=== PATIENT | female | born 1955 | race African-American/Black ===

== ENCOUNTER 2017-01-03 19:27 | Emergency (ER) | payer OTHER ==
[2017-01-03 19:58] VITALS: BP 182/81; PULSE 77; TEMP 98.1; BMI 32.8
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
[2017-01-03] MEDS ORDERED: KETOROLAC TROMETHAMINE 60 MG/2 ML VIAL ONE (21:36)
[2017-01-03] MEDS ORDERED: KETOROLAC TROMETHAMINE 60 MG/2 ML VIAL IM ONE (21:52)
== END 2017-01-03 21:20 | disposition home or self-care (01) ==
LOC: JERFT 19:27 → SUPCPDRO 19:27 → JERFT 21:20
PROC: 3E0233Z Introduction of Anti-inflammatory into Muscle, Percutaneous Approach (ICD-10-PCS; principal; 2017-01-03)
DX: M54.89 Other dorsalgia (principal); M25.512 Pain in left shoulder; V43.62XA Car passenger injured in collision with other type car in traffic accident, initial encounter; Y92.410 Unspecified street and highway as the place of occurrence of the external cause; Y93.89 Activity, other specified; I10 Essential (primary) hypertension; E11.9 Type 2 diabetes mellitus without complications
CPT/HCPCS: 99281-25

== ENCOUNTER 2017-06-04 22:03 | Emergency (ER) | payer OTHER ==
[2017-06-04 22:11] VITALS: BP 151/81; PULSE 98; TEMP 98.7
[2017-06-04] MEDS ORDERED: SULFAMETHOXAZOLE/TRIMETHOPRIM 800MG/160MG D.S. TABLET PO ONE (22:45)
[2017-06-04] MEDS ORDERED: SULFAMETHOXAZOLE/TRIMETHOPRIM 800MG/160MG D.S. TABLET ONE (22:50)
--- NOTE | 2017-06-04 23:04 | PDOC ---
History of Present Illness - General Chief Complaint: Injury Stated Complaint: SPLINTER IN FOOT Time Seen by Provider: 06/04/17 22:20 - History of Present Illness Initial Comments: 06/04/17 23:04 CHIEF COMPLAINT: R foot pain HISTORY OF PRESENT ILLNESS: 61 yo F with hx of NIDDM and HTN presents to fast track with pain to bottom of R foot. Patient reports she got a splinter stuck in her foot 5 days ago and her "removed it but didn't sterilize anything ", and now she is feeling increased pain and swelling to her R foot. Patient denies any fever, chills, nausea, vomiting, diarrhea. PAST MEDICAL HISTORY: Denies past medical history FAMILY HISTORY: Denies SOCIAL HISTORY:Denies tobacco, alcohol, illicit drug use. SURGICAL HISTORY: Denies ALLERGIES: codeine REVIEW OF SYSTEMS General/Constitutional: Denies fever or chills. Denies weakness. HEENT: Denies change in vision. Denies ear pain or discharge. Denies sore throat. Cardiovascular: Denies chest pain or shortness of breath. Respiratory: Denies cough, wheezing, or hemoptysis. Gastrointestinal: Denies nausea, vomiting, diarrhea. Genitourinary: Denies dysuria, frequency, or change in urination. Musculoskeletal: Denies joint or muscle swelling or pain. Denies neck or back pain. Skin: "I got a splinter in my foot 5 days ago and now it's swollen and painful. " Denies rash or easy bruising. Neurologic: Denies headache, vertigo, loss of consciousness, or loss of sensation. PHYSICAL EXAM General Appearance: Well-appearing, appropriately dressed. No apparent distress. HEENT: EOMI, PERRLA, normal ENT inspection, normal voice, TMs normal, pharynx normal. No conjunctival pallor. No photophobia, scleral icterus. Neck: Supple. Trachea midline. No tenderness, rigidity, carotid bruit, stridor , lymphadenopathy, or thyromegaly. Respiratory/Chest: Lungs CTAB. Cardiovascular: RRR. S1, S2. Musculoskeletal/Extremities: Normal inspection. FROM of all extremities, normal capillary refill. Pelvis Stable. No CVA tenderness. No tenderness to extremities, pedal edema, swelling, erythema or deformity. Integumentary: 1 cm x 1 cm minimally fluctuant abscess to lateral aspect of R foot with small foreign body visible. Appropriate color, dry, warm. No cyanosis , erythema, jaundice or rash Neurologic: pharmacy operations coordinator II-XII intact. Fully oriented, alert. Appropriate mood/affect. Motor strength 5/5. No appreciable EOM palsy, facial droop or sensory deficit. Past History - Past Medical History Allergies/Adverse Reactions: Allergies Allergy/AdvReac Type Severity Reaction Status Date / Time codeine [Codeine] Allergy Verified 06/04/17 22:08 Home Medications: Ambulatory Orders Glimepiride [Amaryl -] 1 mg PO DAILY 06/04/17 Losartan Potassium 50 mg PO ASDIR 06/04/17 Sitagliptin Phosphate [Januvia] 50 mg PO DAILY 06/04/17 Sulfamethoxazole/Trimethoprim [Bactrim Ds -] 1 tab PO BID #14 tablet 06/04/17 COPD: No Diabetes: Yes HTN: Yes - Suicide/Smoking/Psychosocial Hx Smoking Status: Yes Smoking History: Former smoker Have you smoked in the past 12 months: Yes Number of Cigarettes Smoked Daily: 5 If you are a former smoker, when did you quit?: 01/2017 Information on smoking cessation initiated: No Hx Alcohol Use: No Drug/Substance Use Hx: No Substance Use Type: None *Physical Exam - Vital Signs Last Vital Signs Temp Pulse Resp BP Pulse Ox 98.7 F 98 H 18 151/81 100 06/04/17 22:08 06/04/17 22:08 06/04/17 22:08 06/04/17 22:08 06/04/17 22:08 Medical Decision Making - Medical Decision Making 06/04/17 23:07 61 yo F with hx of NIDDM and HTN presents to fast track with pain to bottom of R foot. I&D of abscess performed (see proc note), wound culture sent Splinter removed. PAtient is UTD with tetanus. Bactrim first dose given in FT. Advised patient to cotton picker operator rx tonight and continue meds beginning tomorrow morning. Advised patient to take medication as prescribed and of signs and symptoms for return to ED. Patient verbalized understanding and agrees to plan. *DC/Admit/Observation/Transfer Diagnosis at time of Disposition: Abscess - Discharge Dispostion Disposition: HOME Condition at time of disposition: Stable Admit: No - Prescriptions Prescriptions: Sulfamethoxazole/Trimethoprim [Bactrim Ds -] 1 tab PO BID #14 tablet - Referrals Referrals: Daniela Garcia [Primary Care Provider] - - Patient Instructions Printed Discharge Instructions: DI for Incision and Drainage of a Skin Abscess Additional Instructions: Please take antibiotics as prescribed. Please keep the area of injury clean and dry tonight, and then use warm soaks daily 3-4 times a day until improved. If you develop any fever, chills, nausea, vomiting, or diarrhea, or the are of injury becomes increasingly swollen, hot, warm, or painful, please return to the ER immdiately. - Post Discharge Activity
--- NOTE | 2017-06-09 09:40 | PDOC ---
Patient Follow-up (Call Back) - Post ED Follow - Up Chief Complaint: Wound Infection Condition at time of discharge: Improved Disposition at time of original discharge: HOME Reason for Call Back: Abnwl. Microbiology Signs/Symptoms Improved: Yes - Disposition Rx Needed: Yes Additional Instructions/Notes: Pt was seen for a wound on the foot. + diabetic Pt was placed on bactrium however the culture came back resistant I have called and spoke with pt to change antibiotic to clinda and have her follow up with her PCP
== END 2017-06-04 22:53 | disposition home or self-care (01) ==
LOC: JERFT 22:03
PROC: 0J960ZZ Drainage of Chest Subcutaneous Tissue and Fascia, Open Approach (ICD-10-PCS; principal; 2017-06-04)
DX: S90.851A Superficial foreign body, right foot, initial encounter (principal); L02.611 Cutaneous abscess of right foot; I10 Essential (primary) hypertension; E11.9 Type 2 diabetes mellitus without complications; Z79.84 Long term (current) use of oral hypoglycemic drugs; Z87.891 Personal history of nicotine dependence
CPT/HCPCS: 87070; 87186; 87205; 99281-25

== ENCOUNTER 2018-11-17 10:31 | Inpatient (IN) | payer OTHER ==
--- NOTE | 2018-11-17 10:49 | PDOC ---
History of Present Illness - General Chief Complaint: Blood Sugar Problem Stated Complaint: SENT BY PCP/BP PROBLEM Time Seen by Provider: 11/17/18 10:48 History Source: Patient - History of Present Illness Initial Comments: 11/17/18 11:05 The patient is a 62 year old female with a PMH of NIDDM and HTN who presents to our ED c/o elevated blood sugar. Patient is currently on oral anti- hypoglycemics and measures her sugars at work on weekdays. Last week her sugars were in the 100's and this week her sugar readings were consistently "high." Endorses polyuria, polydipsia and blurry vision States she was on Metformin daily, but was recently switched to Jentadueto. Patient was at her PMD's office (Dr. Floyd Rivera) this morning being evaluated for vaginal itching when her BS measured at 600 and she was instructed to come to the ED. The patient denies abdominal pain, nausea/vomiting, chest pain, shortness of breath, numbness/tingling, headache. Allergy: Codeine Surgical: Tubal Ligation, B/L Rotator Cuff repair PMD: Dr. Nicole Barrientos Past History - Past Medical History Allergies/Adverse Reactions: Allergies Allergy/AdvReac Type Severity Reaction Status Date / Time codeine [Codeine] Allergy Verified 06/04/17 22:08 Home Medications: Ambulatory Orders Glimepiride [Amaryl -] 1 mg PO DAILY 06/04/17 Losartan Potassium 50 mg PO ASDIR 06/04/17 Sitagliptin Phosphate [Januvia] 50 mg PO DAILY 06/04/17 Clindamycin [Cleocin -] 150 mg PO Q8H #21 capsule 06/09/17 COPD: No Diabetes: Yes HTN: Yes - Suicide/Smoking/Psychosocial Hx Smoking Status: Yes Smoking History: Never smoked Have you smoked in the past 12 months: No Number of Cigarettes Smoked Daily: 5 If you are a former smoker, when did you quit?: 01/2017 Information on smoking cessation initiated: No Hx Alcohol Use: Yes Drug/Substance Use Hx: No Substance Use Type: None Review of Systems - Review of Systems Constitutional: No: Chills, Fever HEENTM: Yes: Blurred Vision Respiratory: No: Cough, Shortness of Breath Cardiac (ROS): No: Chest Pain, Lightheadedness, Palpitations ABD/GI: No: Constipated, Diarrhea, Nausea, Vomiting, Abdominal cramping *Physical Exam - Vital Signs Last Vital Signs Temp Pulse Resp BP Pulse Ox 98.5 F 82 16 145/82 100 11/17/18 10:46 11/17/18 10:46 11/17/18 10:46 11/17/18 10:46 11/17/18 10:46 - Physical Exam Comments: 11/17/18 17:46 Triage VS reviewed Well appearing/no acute distress CV: S1, S2, RRR, no M/R/G Respiratory: CLTA B/L, no wheeze/crackle Abdomen: non-tender, (+) bowel sounds, no hernia/mass Extremities: 2+ DP pulses B/L, no edema B/L Neuro: A&O x3, CN II-XII intact ED Treatment Course - LABORATORY CBC & Chemistry Diagram: 11/17/18 12:47 11/17/18 12:47 Medical Decision Making - Medical Decision Making 11/17/18 11:23 62 year old female with hyperglycemia, polyuria, polydipsia. Fingerstick reading of 600 this morning @ PMD's office. Insulin naive. Will repeat BS, likely disposition is admission for initiation of insulin therapy. Considered DKA/HHONK, however no abdominal pain, N/V - will refrain from VBG, Serum Acetone at this time. PLAN: CBC/CMP, IV hydration, insulin pending K+ 11/17/18 14:13 Fingerstick 528 K+ wnL Will give 10 units regular insulin 11/17/18 15:03 UA shows 3+ glucose, 1+ ketones Repeat FS pending Case d/w Dr. Willett (covering for patient's PMD, Dr. Nicole Barrientos) will admit for further evaluation including initiation of insulin therapy. 11/17/18 15:09 Case d/w Dr. Nicole Barrientos (patient's PMD) agrees with admission Patient counseled on plan of care, amenable to admission. *DC/Admit/Observation/Transfer Diagnosis at time of Disposition: Hyperglycemia due to type 1 diabetes mellitus - Discharge Dispostion Condition at time of disposition: Stable Decision to Admit order: Yes - Referrals - Patient Instructions - Post Discharge Activity
[2018-11-17] MEDS ORDERED: SODIUM CHLORIDE 0.9% 500 ML INFUS.BAG IV ONE ×2 (10:57→13:51)
--- NOTE | 2018-11-17 11:13 | PDOC ---
Documentation entered by Marietta Mccord SCRIBE, acting as scribe for Manish Rajput MD. Manish Rajput MD: This documentation has been prepared by the Flex paiz Sammi, SCRIBE, under my direction and personally reviewed by me in its entirety. I confirm that the documentation accurately reflects all work, treatment, procedures, and medical decision making performed by me. Attending Attestation - Resident Resident Name: Ava Whitmore - ED Attending Attestation I have performed the following: I have examined & evaluated the patient, The case was reviewed & discussed with the resident, I agree w/resident's findings & plan, Exceptions are as noted - HPI HPI: 11/17/18 11:38 The patient is a 62 year old female, with a significant PMH of HTN, NIDDM, who presents to the emergency department for evaluation of high blood sugar. The patient presents from Dr. Araya office, where she was being evaluated for polyuria and polydipsia. Upon obtaining a fingerstick, they had a reading in the 600s and the patient was sent to the ED for further evaluation. The patient states she regularly checks her blood sugar and consistently runs in the 100s. She reports noticing an increase in her blood sugar readings over the past week. The patient was taking Metformin, but Dr. Rivera had recently changed her to Jentadueto. She also reports lightheadedness and a brief discomfort in her chest yesterday, which has subsided. Allergies: codeine PCP: Nicole - Physicial Exam PE: 11/17/18 11:22 Vitals: Triage vital signs reviewed General Appearance: No acute distress, well nourished, well developed Head: Atraumatic Neck: Supple; No nuchal rigidity Chest Wall: Nontender Cardiac: Regular rate and rhythm, no murmurs, no rubs, no gallops Lungs: Clear to auscultation bilateral, good air movement bilaterally Abdomen: Soft, nondistended, normal bowel sounds, nontender to palpation Extremities: Full range of motion to all extremities, no cyanosis, clubbing, or edema Skin: Warm and dry, no rashes or lesions, no rash, no petechiae Psych: Normal mood, normal affect - Medical Decision Making 11/17/18 13:54 62 years in with [id number]-[id number] diabetes presents to the ED with hyperglycemia as well as polyuria polydipsia Sent to the emergency department for admission Fingerstick greater than 600, no anion gap, no suspicion for DKA, we'll treat with insulin and admit the hospital for further management. Heart Score/ECG Review - ECG Impressions Comment:: 11/17/18 13:55 EKG performed at 1133 demonstrates normal sinus rhythm no ST elevations or T- wave inversions Interpreted by me.
[2018-11-17 13:03] LABS: BASO % 0.7 % (0-2.0); EOS % 1.2 % (0-4.5); HEMATOCRIT 41.7 % (32.4-45.2); HEMOGLOBIN 13.2 GM/dL (10.7-15.3); LYMPH % 24.3 % (8-40); MCH 28.4 pg (25.7-33.7); MCHC 31.5 g/dl (32.0-36.0); MEAN CELL VOLUME 90.1 fl (80-96); MEAN PLT VOLUME 10.1 fl (7.5-11.1); NEUT % 65.8 % (42.8-82.8); RBC 4.63 M/mm3 (3.60-5.2); RDW 13.9 % (11.6-15.6); WHITE BLOOD COUNT 7.3 K/mm3 (4.0-10.0)
[2018-11-17 13:38] LABS: ALBUMIN 3.8 g/dl (3.4-5.0); ALK PHOS 115 U/L (45-117); ANION GAP 9 MMOL/L (8-16); BILIRUBIN,TOTAL 0.7 mg/dL (0.2-1); BLOOD UREA NITROGEN 18.6 mg/dL (7-18); CALCIUM 9.8 mg/dL (8.5-10.1); CHLORIDE 95 mmol/L (98-107); CO2 29 mmol/L (21-32); CREATININE 1.3 mg/dL (0.55-1.3); POTASSIUM 4.8 mmol/L (3.5-5.1); SGOT/AST 11 U/L (15-37); SGPT/ALT 19 U/L (13-61); SODIUM 134 mmol/L (136-145); TOT PROT 7.9 g/dl (6.4-8.2)
[2018-11-17 13:40] LABS: GLUCOSE,RANDOM 627 mg/dL (74-106)
[2018-11-17 13:44] LABS: PH,URINE 6.5 (5.0-8.0); URINE APPEARANCE CLEAR; URINE BILIRUBIN NEGATIVE (NEGATIVE); URINE COLOR YELLOW; URINE GLUCOSE (UA) 3+ (NEGATIVE); URINE KETONE 1+ (NEGATIVE); URINE LEUK ESTERASE NEGATIVE (NEGATIVE); URINE NITRITE NEGATIVE (NEGATIVE); URINE PROTEIN NEGATIVE (NEGATIVE); URINE UROBILINOGEN 0.2 mg/dL (0.2-1.0)
[2018-11-17] MEDS ORDERED: INSULIN REGULAR HUMAN 100 UNITS/ML *VIAL SQ ONE (13:50)
[2018-11-17] MEDS ORDERED: INSULIN REGULAR HUMAN 100 UNITS/ML *VIAL ONE (14:55)
[2018-11-17 17:16] LABS: PLATELET COUNT 223 K/MM3 (134-434)
[2018-11-17] MEDS ORDERED: SODIUM CHLORIDE 1,000 ML IV STA (18:17)
--- NOTE | 2018-11-17 18:27 | HP ---
Admitting History and Physical - Primary Care Physician PCP: Lio Willett - Admission Chief Complaint: Polyuria polydypsia History of Present Illness: 62 yrs old F with T2DM, poorly controlled, non compliant HTN, 1 wk ago present to clinic with dysuria recived Fluconazole, today present to clinic with ongoing polyuria and polydipsia, lightheadedness FS recorded > 600 mg referred tpo ED for hospitalization blood w/u shows FS 625 with elevated BUN/ Creat and dehydration admitted for sever hyperlycemia and dehydration management , no c/o fever, chills, vomiting dirrhea, CVA pain c/o dysuria no c/o chest pian SOB or palpitation. History Source: Patient - Past Medical History Cardiovascular: Yes: HTN ...: No Endocrine: Yes: Diabetes Mellitus - Smoking History Smoking history: Never smoked Have you smoked in the past 12 months: No Aproximately how many cigarettes per day: 5 If you are a former smoker, when did you quit?: 01/2017 - Alcohol/Substance Use Hx Alcohol Use: Yes Home Medications - Allergies Allergies/Adverse Reactions: Allergies Allergy/AdvReac Type Severity Reaction Status Date / Time codeine [Codeine] Allergy Verified 06/04/17 22:08 - Home Medications Home Medications: Ambulatory Orders Glimepiride [Amaryl -] 1 mg PO DAILY 06/04/17 Losartan Potassium 50 mg PO ASDIR 06/04/17 Sitagliptin Phosphate [Januvia] 50 mg PO DAILY 06/04/17 Clindamycin [Cleocin -] 150 mg PO Q8H #21 capsule 06/09/17 Family Disease History - Family Disease History Family Disease History: Diabetes: Mother Review of Systems - Review of Systems Constitutional: reports: Lethargy, Malaise. denies: Diaphoresis, Fever Eyes: denies: Blind Spots, Blurred Vision HENT: denies: Difficult Swallowing, Ear Discharge Neck: denies: Decreased ROM, Lumps, Pain on Movement Cardiovascular: denies: Chest Pain, Edema, Palpitations Respiratory: denies: Cough, Exercise Intolerance, Hemoptysis Gastrointestinal: denies: Abdominal Pain, Bloating, Constipation, Diarrhea Genitourinary: reports: Burning, Dysuria, Frequency. denies: Discharge, Flank Pain Musculoskeletal: denies: Back Pain, Crepitus Integumentary: denies: Bruising, Lesions Neurological: reports: Dizziness. denies: Change in LOC, Change in Speech, Confusion Hematology/Lymphatic: denies: Easily Bruised Psychiatric: denies: Altered Sleep Pattern Pain Intensity: 0 Physical Examination Vital Signs: Vital Signs Temperature 98.2 F 11/17/18 16:45 Pulse Rate 78 11/17/18 16:45 Respiratory Rate 20 11/17/18 16:45 Blood Pressure 154/87 11/17/18 16:45 O2 Sat by Pulse Oximetry (%) 100 11/17/18 10:46 Constitutional: Yes: Calm. No: No Distress Eyes: Yes: Conjunctiva Clear, EOM Intact. No: Diplopia HENT: No: Atraumatic, Normocephalic, Pharyngeal Erythema, Rhinnorhea Neck: Yes: Supple, Trachea Midline. No: Decreased ROM, Lymphadenopathy Cardiovascular: Yes: Regular Rate and Rhythm, S1, S2, S3. No: JVD, Murmur Respiratory: Yes: Regular, CTA Bilaterally Gastrointestinal: Yes: Normal Bowel Sounds, Soft Musculoskeletal: No: Back Pain, Joint Stiffness, Joint Swelling Edema: No Peripheral Pulses: Left Doralis Pedis: 2+, Right Dorsalis Pedis: 2+ Neurological: Yes: Alert, Oriented. No: Aphasia ...Motor Strength: WNL, LUE, LLE, RUE, RLE Labs: WBC 7.3 K/mm3 (4.0-10.0) 11/17/18 12:47 RBC 4.63 M/mm3 (3.60-5.2) 11/17/18 12:47 Hgb 13.2 GM/dL (10.7-15.3) 11/17/18 12:47 Hct 41.7 % (32.4-45.2) 11/17/18 12:47 MCV 90.1 fl (80-96) 11/17/18 12:47 MCHC 31.5 g/dl (32.0-36.0) L 11/17/18 12:47 RDW 13.9 % (11.6-15.6) 11/17/18 12:47 Plt Count 223 K/MM3 (134-434) 11/17/18 12:47 MPV 10.1 fl (7.5-11.1) 11/17/18 12:47 CMP Sodium 134 mmol/L (136-145) L 11/17/18 12:47 Potassium 4.8 mmol/L (3.5-5.1) 11/17/18 12:47 Chloride 95 mmol/L (98-107) L 11/17/18 12:47 Carbon Dioxide 29 mmol/L (21-32) 11/17/18 12:47 Anion Gap 9 MMOL/L (8-16) 11/17/18 12:47 BUN 18.6 mg/dL (7-18) H 11/17/18 12:47 Creatinine 1.3 mg/dL (0.55-1.3) 11/17/18 12:47 Calcium 9.8 mg/dL (8.5-10.1) 11/17/18 12:47 Total Bilirubin 0.7 mg/dL (0.2-1) 11/17/18 12:47 AST 11 U/L (15-37) L 11/17/18 12:47 ALT 19 U/L (13-61) 11/17/18 12:47 Alkaline Phosphatase 115 U/L (45-117) 11/17/18 12:47 Total Protein 7.9 g/dl (6.4-8.2) 11/17/18 12:47 Albumin 3.8 g/dl (3.4-5.0) 11/17/18 12:47 Imaging - Results Chest X-ray: Report Reviewed (No infiltrates) EKG: Report Reviewed (No acute St T chnages) Problem List - Problems (1) Hyperglycemia due to type 2 diabetes mellitus Assessment/Plan: present with Polyuria, Polydy[delon with weakness FS reported > 600 , received IV hydraion, R insiulin will add Basal Insullin Levimir 20 units with correction dose insulin , diabetic Diet optimize as indicated Code(s): E11.65 - TYPE 2 DIABETES MELLITUS WITH HYPERGLYCEMIA (2) HTN (hypertension) Assessment/Plan: Resume home meds F/U BP monitoring Code(s): I10 - ESSENTIAL (PRIMARY) HYPERTENSION (3) Dehydration Assessment/Plan: Due to uncontrolled DM F/U BMP ater IV Hydration Code(s): E86.0 - DEHYDRATION
[2018-11-17] MEDS ORDERED: FLUCONAZOLE 100 MG TABLET (UD) PO ONE (18:34)
[2018-11-17] MEDS: INSULIN SLIDING SCALE (NOVOLOG) 1 VIAL SQ SCH (19:03)
[2018-11-17] MEDS ORDERED: INSULIN (LEVEMIR) 100 UNITS/ML UNITS SQ ONE (19:30)
[2018-11-17 20:08] LABS: CHOLESTEROL 162 mg/dL (50-200); HDL CHOLESTEROL 53 mg/dL (40-60); TRIGLYCERIDES 183 mg/dL (0-150)
[2018-11-17] MEDS: INSULIN (LEVEMIR) 100 UNITS/ML UNITS SQ SCH (21:46)
[2018-11-18] MEDS: INSULIN SLIDING SCALE (NOVOLOG) 1 VIAL SQ SCH ×4 (06:39→21:52)
[2018-11-18] MEDS: sitaGLIPtin PHOSPHATE 50 MG TABLET PO SCH (06:39)
[2018-11-18] MEDS ORDERED: INSULIN (NOVOLOG) ASPART 100 UNITS/ML 10ML VIAL SQ SCH (07:00)
[2018-11-18 07:20] LABS: BLOOD UREA NITROGEN 9.1 mg/dL (7-18); CALCIUM 8.4 mg/dL (8.5-10.1); POTASSIUM 4.4 mmol/L (3.5-5.1)
[2018-11-18 07:25] LABS: BASO % 0.5 % (0-2.0); EOS % 2.6 % (0-4.5); HEMATOCRIT 37.5 % (32.4-45.2); HEMOGLOBIN 12.3 GM/dL (10.7-15.3); LYMPH % 32.3 % (8-40); MCHC 32.9 g/dl (32.0-36.0); MEAN CELL VOLUME 88.2 fl (80-96); MEAN PLT VOLUME 9.9 fl (7.5-11.1); MONO % 8.5 % (3.8-10.2); NEUT % 56.1 % (42.8-82.8); RBC 4.25 M/mm3 (3.60-5.2); RDW 13.6 % (11.6-15.6); WHITE BLOOD COUNT 5.8 K/mm3 (4.0-10.0)
--- NOTE | 2018-11-18 08:31 | EKG ---
Test Reason : Blood Pressure : / mmHG Vent. Rate : 092 BPM Atrial Rate : 092 BPM P-R Int : 152 ms QRS Dur : 072 ms QT Int : 376 ms P-R-T Axes : 060 -24 032 degrees QTc Int : 464 ms NORMAL SINUS RHYTHM POSSIBLE LEFT ATRIAL ENLARGEMENT LEFT VENTRICULAR HYPERTROPHY CANNOT RULE OUT SEPTAL INFARCT , AGE UNDETERMINED ABNORMAL ECG WHEN COMPARED WITH ECG OF 19-JUL-2007 13:27, MINIMAL CRITERIA FOR SEPTAL INFARCT ARE NOW PRESENT Confirmed by RACQUEL MENDOZA MD ([id number]) on 11/18/2018 8:30:43 AM Referred By: Confirmed By:RACQUEL MENDOZA MD
[2018-11-18] MEDS: LOSARTAN POTASSIUM 50 MG TABLET (FP) PO SCH (09:29)
--- NOTE | 2018-11-18 09:43 | CONSULT ---
Consult Consult Specialty:: Endocrinology Referred by:: Dr Willett Reason for Consultation:: Hyperglycemia - History of Present Illness Chief Complaint: Hyperglycemia History of Present Illness: This is a 62 year old female with h/o T2DM for about 5 years, never on Insulin and HTN who presented to ED with c/o elevated blood sugar. Patient was on oral anti-hypoglycemics checked her sugars at work on weekdays which were usually low 100s in the morning. Blood sugars started readings consistently "high" for the last week. Has developed polyuria every hour, polydipsia nocturia and blurry vision for the same period. She recently started exercising and eating more vegetables for the last 2 weeks. Has been drinking orange juice also recently. Denies taking any new meds. States she was on was recently switched to Jentadueto. Patient was at her PMD's office yesterday morning being evaluated for vaginal itching when her BS measured at 600 and she was instructed to come to the ED. Pt referred for management of hyperglycemia. The patient denies abdominal pain, nausea/vomiting, chest pain, shortness of breath, numbness/tingling, headache. Saw Ophthalmology in August. Pt denies any family h/o of DM including her mother. - History Source History Provided By: Patient, Medical Record - Past Medical History Cardio/Vascular: Yes: HTN ...: No Endocrine: Yes: Diabetes Mellitus - Alcohol/Substance Use Hx Alcohol Use: Yes - Smoking History Smoking history: Never smoked Have you smoked in the past 12 months: No Aproximately how many cigarettes per day: 5 If you are a former smoker, when did you quit?: 01/2017 Home Medications - Allergies Allergies/Adverse Reactions: Allergies Allergy/AdvReac Type Severity Reaction Status Date / Time codeine [Codeine] Allergy Verified 06/04/17 22:08 - Home Medications Home Medications: Ambulatory Orders Glimepiride [Amaryl -] 1 mg PO DAILY 06/04/17 Losartan Potassium 50 mg PO ASDIR 06/04/17 Sitagliptin Phosphate [Januvia] 50 mg PO DAILY 06/04/17 Clindamycin [Cleocin -] 150 mg PO Q8H #21 capsule 06/09/17 Family Disease History - Family Disease History Other Family History: No family h/o DM Review of Systems - Review of Systems Constitutional: reports: No Symptoms Eyes: reports: Blurred Vision HENT: reports: No Symptoms Neck: reports: No Symptoms Cardiovascular: reports: No Symptoms Respiratory: reports: No Symptoms Gastrointestinal: reports: No Symptoms Genitourinary: reports: Other (Polyuria, polydipsia, nocturia Vaginal itching) Musculoskeletal: reports: No Symptoms Integumentary: reports: No Symptoms Neurological: reports: No Symptoms Endocrine: reports: No Symptoms Physical Exam Vital Signs: Vital Signs Temperature 98.8 F 11/18/18 05:51 Pulse Rate 77 11/18/18 05:51 Respiratory Rate 18 11/18/18 05:51 Blood Pressure 142/89 11/18/18 05:51 O2 Sat by Pulse Oximetry (%) 100 11/17/18 21:00 Constitutional: Yes: No Distress, Calm Eyes: Yes: Conjunctiva Clear, EOM Intact HENT: Yes: Atraumatic, Normocephalic Neck: Yes: Supple, Trachea Midline Cardiovascular: Yes: Regular Rate and Rhythm Respiratory: Yes: Regular, CTA Bilaterally Gastrointestinal: Yes: Normal Bowel Sounds, Soft Musculoskeletal: Yes: WNL Extremities: Yes: WNL Edema: No Neurological: Yes: Alert, Oriented Labs: CBC, BMP 11/18/18 06:30 11/18/18 06:30 Assessment/Plan T2DM with hyperglycemia HTN Diet exercise discussed Diabetes education Nutrition consult Levemir 20 units daily at HS Novolog SS coverage Januvia 50mg QD Restart Metformin 500mg BID Teach pt to self inject Insulin and follow a sliding scale. Will F/u
--- NOTE | 2018-11-18 10:45 | PN ---
Progress Note, Physician Chief Complaint: feels improved - Current Medication List Current Medications: Active Medications Insulin Aspart (Novolog Vial Sliding Scale -) 1 vial SQ HS [facility]; Protocol Insulin Aspart (Novolog Vial Sliding Scale -) 1 vial SQ [facility]; Protocol Insulin Detemir (Levemir Vial) 20 units SQ HS [facility] Last Admin: 11/17/18 21:46 Dose: 20 units Losartan Potassium (Cozaar -) 50 mg PO DAILY [facility] Last Admin: 11/18/18 09:29 Dose: 50 mg Metformin HCl (Glucophage -) 500 mg PO BID@0700,1630 [facility] Sitagliptin Phosphate (Januvia -) 50 mg PO DAILY@0700 [facility] Last Admin: 11/18/18 06:39 Dose: 50 mg - Objective Vital Signs: Vital Signs Temperature 98.8 F 11/18/18 05:51 Pulse Rate 77 11/18/18 05:51 Respiratory Rate 18 11/18/18 05:51 Blood Pressure 142/89 11/18/18 05:51 O2 Sat by Pulse Oximetry (%) 100 11/17/18 21:00 Constitutional: Yes: Well Nourished, No Distress, Calm Eyes: Yes: Conjunctiva Clear, EOM Intact HENT: Yes: Atraumatic, Normocephalic. No: Drooling Neck: Yes: Supple, Trachea Midline. No: Lymphadenopathy Cardiovascular: Yes: S1, S2. No: JVD Respiratory: Yes: Regular, CTA Bilaterally Gastrointestinal: Yes: Soft. No: Normal Bowel Sounds Musculoskeletal: No: Back Pain, Joint Stiffness Extremities: No: Calf Tenderness Neurological: Yes: Alert ...Motor Strength: WNL, LUE, LLE, RUE, RLE Labs: CBC, BMP 11/18/18 06:30 11/18/18 06:30 Problem List - Problems (1) Hyperglycemia due to type 2 diabetes mellitus Assessment/Plan: HbA!C 12 cont Levimir 20 with correction dose insulin , Metformin and Januvia Dc IV Hydration Code(s): E11.65 - TYPE 2 DIABETES MELLITUS WITH HYPERGLYCEMIA (2) HTN (hypertension) Assessment/Plan: Well controlled cont all home meds. Code(s): I10 - ESSENTIAL (PRIMARY) HYPERTENSION (3) Dehydration Assessment/Plan: Due to uncontrolled DM now resolved. Code(s): E86.0 - DEHYDRATION
[2018-11-18 12:42] LABS: PLATELET COUNT 294 K/MM3 (134-434)
[2018-11-18] MEDS ORDERED: NAPROXEN 250 MG TABLET (FP) PO PRN (14:15)
[2018-11-18] MEDS: metFORMIN HCL 500 MG TABLET (FP) PO SCH (17:27)
[2018-11-18] MEDS: INSULIN (LEVEMIR) 100 UNITS/ML UNITS SQ SCH (21:52)
[2018-11-19] MEDS: metFORMIN HCL 500 MG TABLET (FP) PO SCH ×2 (06:45→17:05)
[2018-11-19] MEDS: sitaGLIPtin PHOSPHATE 50 MG TABLET PO SCH (06:45)
[2018-11-19] MEDS: INSULIN SLIDING SCALE (NOVOLOG) 1 VIAL SQ SCH ×4 (06:49→21:16)
[2018-11-19 07:07] LABS: EOS % 3.1 % (0-4.5); HEMATOCRIT 37.6 % (32.4-45.2); HEMOGLOBIN 12.5 GM/dL (10.7-15.3); LYMPH % 41.9 % (8-40); MCH 29.1 pg (25.7-33.7); MCHC 33.1 g/dl (32.0-36.0); MEAN CELL VOLUME 87.7 fl (80-96); MEAN PLT VOLUME 9.5 fl (7.5-11.1); PLATELET COUNT 233 K/MM3 (134-434); RBC 4.29 M/mm3 (3.60-5.2); RDW 13.7 % (11.6-15.6); WHITE BLOOD COUNT 4.9 K/mm3 (4.0-10.0)
[2018-11-19 07:34] LABS: ALBUMIN 3.2 g/dl (3.4-5.0); BILIRUBIN,TOTAL 0.7 mg/dL (0.2-1); BLOOD UREA NITROGEN 9.8 mg/dL (7-18); CALCIUM 8.3 mg/dL (8.5-10.1); CREATININE 0.9 mg/dL (0.55-1.3); POTASSIUM 4.3 mmol/L (3.5-5.1); TOT PROT 6.5 g/dl (6.4-8.2)
[2018-11-19] MEDS: LOSARTAN POTASSIUM 50 MG TABLET (FP) PO SCH (09:11)
--- NOTE | 2018-11-19 10:05 | PN ---
Progress Note, Physician Chief Complaint: Feels better - Current Medication List Current Medications: Active Medications Insulin Aspart (Novolog Vial Sliding Scale -) 1 vial SQ HS [facility]; Protocol Last Admin: 11/18/18 21:52 Dose: 6 units Insulin Aspart (Novolog Vial Sliding Scale -) 1 vial SQ [facility]; Protocol Last Admin: 11/19/18 06:49 Dose: 8 units Losartan Potassium (Cozaar -) 50 mg PO DAILY [facility] Last Admin: 11/19/18 09:11 Dose: 50 mg Metformin HCl (Glucophage -) 500 mg PO BID@0700,1630 [facility] Last Admin: 11/19/18 06:45 Dose: 500 mg Naproxen (Naprosyn -) 250 mg PO Q12H PRN PRN Reason: PAIN LEVEL 4 - 6 Last Admin: 11/18/18 21:48 Dose: 250 mg Sitagliptin Phosphate (Januvia -) 50 mg PO DAILY@0700 [facility] Last Admin: 11/19/18 06:45 Dose: 50 mg - Objective Vital Signs: Vital Signs Temperature 98 F 11/19/18 05:55 Pulse Rate 68 11/19/18 05:55 Respiratory Rate 17 11/19/18 05:55 Blood Pressure 149/70 11/19/18 05:55 O2 Sat by Pulse Oximetry (%) 99 11/18/18 21:00 Constitutional: Yes: No Distress Eyes: Yes: WNL HENT: Yes: WNL Neck: Yes: WNL Cardiovascular: Yes: WNL Respiratory: Yes: WNL Gastrointestinal: Yes: WNL ...Rectal Exam: Yes: WNL Genitourinary: Yes: WNL Breast(s): Yes: WNL Integumentary: Yes: WNL Neurological: Yes: Alert Labs: CBC, BMP 11/19/18 06:37 11/19/18 06:37 Problem List - Problems (1) Hyperglycemia due to type 2 diabetes mellitus Code(s): E11.65 - TYPE 2 DIABETES MELLITUS WITH HYPERGLYCEMIA (2) HTN (hypertension) Code(s): I10 - ESSENTIAL (PRIMARY) HYPERTENSION (3) Dehydration Code(s): E86.0 - DEHYDRATION Assessment/Plan Continue same trt
--- NOTE | 2018-11-19 12:09 | PN ---
Progress Note (short form) - Note Progress Note: Denies any complaints Blood sugar Improving Vital Signs Period Temp Pulse Resp BP Sys/Arias Pulse Ox Last 24 Hr 98 F-98.8 F 68-95 17-18 136-189/68-89 96-99 PE:AOx3 Neck supple HEENT:PERRL EOME Lungs: CTA CVS: S1S2 ABd: Benign EXT: No edema Neuro: No focal deficit CMP Sodium 138 mmol/L (136-145) 11/19/18 06:37 Potassium 4.3 mmol/L (3.5-5.1) 11/19/18 06:37 Chloride 103 mmol/L (98-107) 11/19/18 06:37 Carbon Dioxide 29 mmol/L (21-32) 11/19/18 06:37 Anion Gap 6 MMOL/L (8-16) L 11/19/18 06:37 BUN 9.8 mg/dL (7-18) 11/19/18 06:37 Creatinine 0.9 mg/dL (0.55-1.3) 11/19/18 06:37 Est GFR (CKD-EPI)AfAm 79.98 11/19/18 06:37 Est GFR (CKD-EPI)NonAf 69.01 11/19/18 06:37 POC Glucometer 201 UNITS (80-120) 11/19/18 11:41 Random Glucose 270 mg/dL (74-106) H 11/19/18 06:37 Hemoglobin A1c % 12.4 % (4.2-6.3) H 11/18/18 06:30 Calcium 8.3 mg/dL (8.5-10.1) L 11/19/18 06:37 Total Bilirubin 0.7 mg/dL (0.2-1) 11/19/18 06:37 AST 11 U/L (15-37) L 11/19/18 06:37 ALT 14 U/L (13-61) 11/19/18 06:37 Alkaline Phosphatase 88 U/L (45-117) 11/19/18 06:37 Creatine Kinase 349 U/L (26-192) H 11/17/18 12:47 Creatine Kinase Index 0.4 % (0.0-5.0) 11/17/18 12:47 CK-MB (CK-2) 1.7 ng/mL (0.5-3.6) 11/17/18 12:47 Troponin I < 0.02 ng/ml (0.00-0.05) 11/17/18 12:47 Total Protein 6.5 g/dl (6.4-8.2) 11/19/18 06:37 Albumin 3.2 g/dl (3.4-5.0) L 11/19/18 06:37 Triglycerides 183 mg/dL (0-150) H 11/17/18 12:47 Cholesterol 162 mg/dL (50-200) 11/17/18 12:47 Total LDL Cholesterol 91 mg/dL (5-100) 11/17/18 12:47 HDL Cholesterol 53 mg/dL (40-60) 11/17/18 12:47 Current Medications Generic Name Dose Route Start Last Admin Trade Name Freq PRN Reason Stop Dose Admin Insulin Aspart 1 vial 11/18/18 22:00 11/18/18 21:52 Novolog Vial Sliding Scale - SQ 6 units HS [facility] Administration Protocol Insulin Aspart 1 vial 11/18/18 11:00 11/19/18 11:43 Novolog Vial Sliding Scale - SQ 8 units [facility] Administration Protocol Insulin Detemir 25 units 11/19/18 22:00 Levemir Vial SQ HS [facility] Losartan Potassium 50 mg 11/18/18 10:00 11/19/18 09:11 Cozaar - PO 50 mg DAILY [facility] Administration Metformin HCl 500 mg 11/18/18 16:30 11/19/18 06:45 Glucophage - PO 500 mg BID@0700,1630 [facility] Administration Naproxen 250 mg 11/18/18 14:15 11/18/18 21:48 Naprosyn - PO 250 mg Q12H PRN Administration PAIN LEVEL 4 - 6 Sitagliptin Phosphate 50 mg 11/18/18 07:00 11/19/18 06:45 Januvia - PO 50 mg DAILY@0700 [facility] Administration AP: T2DM with hyperglycemia HTN Diet exercise discussed Diabetes education Nutrition consult Increase Levemir 24 units daily at HS Novolog SS coverage Januvia 50mg QD Metformin 500mg BID Pt learning to self inject Insulin and follow a sliding scale. Will F/u
[2018-11-19 13:30] VITALS: BMI 35.2
[2018-11-19] MEDS ORDERED: PANTOPRAZOLE 40 MG TABLET (FP) PO ONE (21:00)
[2018-11-19] MEDS ORDERED: INSULIN (LEVEMIR) 100 UNITS/ML UNITS SQ SCH (22:00)
[2018-11-20] MEDS: metFORMIN HCL 500 MG TABLET (FP) PO SCH (06:05)
[2018-11-20] MEDS: sitaGLIPtin PHOSPHATE 50 MG TABLET PO SCH (06:05)
[2018-11-20] MEDS: INSULIN SLIDING SCALE (NOVOLOG) 1 VIAL SQ SCH (06:08)
[2018-11-20] MEDS ORDERED: ONDANSETRON 4 MG/2 ML VIAL ONE (08:34)
[2018-11-20] MEDS ORDERED: ONDANSETRON 4 MG/2 ML VIAL IVPUSH ONE (08:45)
[2018-11-20] MEDS: LOSARTAN POTASSIUM 50 MG TABLET (FP) PO SCH (09:16)
--- NOTE | 2018-11-20 09:43 | DS ---
Physical Examination Vital Signs: Vital Signs Temperature 97.9 F 11/20/18 06:00 Pulse Rate 75 11/20/18 06:00 Respiratory Rate 18 11/20/18 06:00 Blood Pressure 159/84 11/20/18 06:00 O2 Sat by Pulse Oximetry (%) 99 11/19/18 20:15 Findings/Remarks: Feels better,this AM she was C/O nausea,received Zofran,felt better Urine culture grew beta sterp [id number],pansensitive DC home on PO antibiotics Constitutional: Yes: No Distress Eyes: Yes: WNL HENT: Yes: WNL Neck: Yes: WNL Cardiovascular: Yes: WNL Respiratory: Yes: WNL Gastrointestinal: Yes: WNL ...Rectal Exam: Yes: WNL Renal/: Yes: WNL Musculoskeletal: Yes: Muscle Weakness Edema: No Peripheral Pulses WNL: Yes Integumentary: Yes: WNL Neurological: Yes: Alert Psychiatric: Yes: Alert Labs: CBC, BMP 11/19/18 06:37 11/19/18 06:37 Discharge Summary Reason For Visit: HYPERGLYCEMIA Current Active Problems Dehydration (Acute) HTN (hypertension) (Acute) Hyperglycemia due to type 1 diabetes mellitus (Acute) Hyperglycemia due to type 2 diabetes mellitus (Acute) Condition: Stable - Instructions - Home Medications Comprehensive Discharge Medication List: Ambulatory Orders Glimepiride [Amaryl -] 1 mg PO DAILY 06/04/17 Losartan Potassium 50 mg PO ASDIR 06/04/17 Sitagliptin Phosphate [Januvia] 50 mg PO DAILY 06/04/17 Clindamycin [Cleocin -] 150 mg PO Q8H #21 capsule 06/09/17
[2018-11-20 09:54] VITALS: BP 160/83; PULSE 81; TEMP 98.8
== END 2018-11-20 10:48 | disposition home or self-care (01) | DRG 639 ==
LOC: SUPCPDRO 10:31 → JER 10:31 → JERBED 14:14 → J7W 16:48 → OBSVTOIN 11-19 08:37
PROVIDERS: ADMIT Internal Medicine; ATTEND Internal Medicine
DX: E11.65 Type 2 diabetes mellitus with hyperglycemia (principal); I10 Essential (primary) hypertension; E86.0 Dehydration
CPT/HCPCS: 36415; 71046-TC-FY; 80048; 80053; 80061; 81003; 82550; 82553; 82962; 83036; 83721; 84484; 85025; 87086; 87186; 93005; 93010; 99284-25; G0378; J7030

== ENCOUNTER 2023-03-18 17:55 | Emergency (ER) | payer OTHER ==
[2023-03-18 18:04] VITALS: RESP 20; BMI 34.2
[2023-03-18] MEDS ORDERED: ACETAMINOPHEN 1000 MG/100 ML BAG IVPB ONE (18:47)
[2023-03-18] MEDS ORDERED: ALPRAZolam 0.25 MG TABLET PO ONE (19:04)
[2023-03-18] MEDS ORDERED: ACETAMINOPHEN INJECTION 100 ML IVPB ONE (20:16)
[2023-03-18 20:40] LABS: BASO % 0.4 % (0-2.0); EOS % 4.1 % (0-4.5); HEMATOCRIT 36.8 % (32.4-45.2); HEMOGLOBIN 11.7 GM/dL (10.7-15.3); LYMPH % 23.9 % (8-40); MCH 26.8 pg (25.7-33.7); MCHC 31.8 g/dl (32.0-36.0); MEAN CELL VOLUME 84.2 fl (80-96); MEAN PLT VOLUME 8.7 fl (7.5-11.1); MONO % 8.8 % (3.8-10.2); NEUT % 62.8 % (42.8-82.8); PLATELET COUNT 263 10^3/uL (134-434); RBC 4.37 M/mm3 (3.60-5.2); RDW 16.6 % (11.6-15.6); WHITE BLOOD COUNT 9.1 K/mm3 (4.0-10.0)
[2023-03-18 20:41] LABS: INR 1.04 (0.83-1.09); PROTHROMBIN TIME (PATIENT) 12.1 SEC (9.7-13.0)
[2023-03-18 20:43] LABS: ACTIVATED PTT 32.1 SECONDS (25.2-36.5)
[2023-03-18 21:43] VITALS: BP 152/65; PULSE 81; TEMP 98.6
[2023-03-18 21:59] LABS: POTASSIUM 3.7 mmol/L (3.5-5.1)
[2023-03-18 22:01] LABS: ALBUMIN 2.8 g/dl (3.4-5.0); BLOOD UREA NITROGEN 13.2 mg/dL (7-18); CALCIUM 8.3 mg/dL (8.5-10.1)
[2023-03-18 22:04] LABS: CREATININE 0.8 mg/dL (0.55-1.3)
[2023-03-18 22:06] LABS: BILIRUBIN,TOTAL 0.3 mg/dL (0.2-1)
[2023-03-18 22:08] LABS: TOT PROT 6.7 g/dl (6.4-8.2)
== END 2023-03-18 22:52 | disposition home or self-care (01) ==
LOC: JER 17:55
PROC: 3E033NZ Introduction of Analgesics, Hypnotics, Sedatives into Peripheral Vein, Percutaneous Approach (ICD-10-PCS; principal; 2023-03-18)
DX: R22.42 Localized swelling, mass and lump, left lower limb (principal); Z48.812 Encounter for surgical aftercare following surgery on the circulatory system; R68.83 Chills (without fever)
CPT/HCPCS: 36415; 80053; 85025; 85610; 85730; 86850; 86900; 86901; 93970-TC; 99284-25